=== PATIENT | female | born 1995 | race Caucasian/White ===

== ENCOUNTER → 2019-09-23 | Outpatient (CLI) | payer OTHER ==
--- NOTE | 2019-09-23 13:38 | REP ---
Digital diagnostic bilateral mammography with CAD, 3-D tomography. History: Tender lump and redness left breast. Treated for mastitis with antibiotics. Mild bilateral skin rash. Mastitis symptoms and the palpable lump have resolved according to patient as of the date of mammography. No comparison breast imaging. Findings: Routine views of the left breast are augmented by 3-D tomography. Magnified views of the right breast were obtained at my request because of routine views showing a possible asymmetric density. The magnified views of the right breast demonstrate that this area compresses away to normal breast stromal elements. No asymmetric density mass or architectural distortion is seen on either side mammographically. No microcalcification or worrisome skin change is appreciated. A true MLO view of the left breast is also obtained and shows no additional finding. Impression: BIRADS category 1 negative findings. Clinical followup is advised. This mammogram was interpreted with the aid of an FDA-approved computer-aided detection system. The patient states she had a clinical breast exam in August 2019. The patient letter being requested is m2. This patient's estimated Tyrer-Cuzick lifetime risk assessment for the breast cancer is 19.6 %. Patient's whose breast cancer lifetime risk assessment is greater than 20% merit enhanced screening with annual MRI scanning.
== END ==
LOC: M WHC 11:07
PROVIDERS: ATTEND Family Medicine
DX: N63.20 Unspecified lump in the left breast, unspecified quadrant (principal)
CPT/HCPCS: 77066; G0279

== ENCOUNTER 2019-10-15 11:38 | Emergency (ER) | payer OTHER ==
[~2019-10-15] VITALS: Ht 165.1 cm; Wt 79.5 kg
[2019-10-15] MEDS ORDERED: ADDE20CA3 PO (12:09)
[2019-10-15 12:53] LABS: BASO # 0.1 10^3/uL (0.0-0.2); BASO % 0.6 % (0.0-1.0); EOS # 0.3 10^3/uL (0.0-0.5); EOS % 3.5 % (0.0-3.0); HEMATOCRIT 44.7 % (36.0-47.0); LYMPH # 2.4 10^3/uL (1.5-5.0); MEAN CORPUSCULAR HEMOGLOBIN 31.8 pg (27.0-33.0); MEAN CORPUSCULAR HGB CONC 33.6 g/dl (32.0-36.5); MEAN CORPUSCULAR VOLUME 94.9 fl (80.0-96.0); MONO # 0.4 10^3/uL (0.0-0.8); MONO % 5.3 % (0.0-5.0); NEUTROPHILS # 4.6 10^3/uL (1.5-8.5); NEUTROPHILS % 59.5 % (36.0-66.0); PLATELET COUNT, AUTOMATED 302 10^3/uL (150-450); RED BLOOD COUNT 4.71 10^6/uL (4.00-5.40); WHITE BLOOD COUNT 7.8 10^3/uL (4.0-10.0)
[2019-10-15 13:30] LABS: ALBUMIN 3.7 GM/DL (3.2-5.2); ALT/SGPT 23 U/L (12-78); BILIRUBIN,DIRECT < 0.1 MG/DL (0.0-0.2); BILIRUBIN,TOTAL 0.3 MG/DL (0.2-1.0); BLOOD UREA NITROGEN 12 MG/DL (7-18); CALCIUM LEVEL 9.5 MG/DL (8.5-10.1); CARBON DIOXIDE LEVEL 28 MEQ/L (21-32); CHLORIDE LEVEL 106 MEQ/L (98-107); CK-MB VALUE MASS < 1.0 NG/ML (<3.6); CPK CREATINE PHOSPHOKINASE 43 U/L (26-192); GLOMERULAR FILTRATION RATE > 60.0 (>60); GLUCOSE, FASTING 86 MG/DL (70-100); MB/CK RELATIVE INDEX 2.33 (< OR =4); POTASSIUM SERUM 4.6 MEQ/L (3.5-5.1); SODIUM LEVEL 137 MEQ/L (136-145); THYROID STIMULATING HORMONE 0.583 uIU/ML (0.358-3.740); THYROXINE (T4) 10.5 UG/DL (4.5-12.0); TOTAL PROTEIN 7.3 GM/DL (6.4-8.2); TROPONIN I < 0.02 NG/ML (< 0.10)
--- NOTE | 2019-10-15 13:45 | REP ---
CHEST, SINGLE VIEW: There is no evidence of acute infiltrate. No pleural effusion is seen. The heart is normal in size. The mediastinal silhouette is unremarkable. The visualized osseous structures are intact. IMPRESSION: No acute pulmonary disease. Electronically Signed by Jaime Lyon MD 10/15/2019 02:09 P
[2019-10-15] MEDS ORDERED: CEPHALEXIN 500 MG CAP PO ONE (17:15)
[2019-10-15] MEDS ORDERED: HYDROXYCHLOROQUINE 200 MG TAB PO ONE (17:30)
[2019-10-15] MEDS ORDERED: KEFL500C17 PO (17:31)
[2019-10-15 17:46] VITALS: BP 110/84
--- NOTE | 2019-10-15 18:44 | ECGEPIP ---
[facility] - ED Test Date: 2019-10-15 Pat Name: AMANDA ALLEN Department: Room: - Gender: Female [id number] Operator: PMO : 1995 Requested By: RAMBO Lloyd Order Number: [id number] Reading MD: Meredith Gutierrez Measurements Intervals Massey Rate: 82 P: 67 IA: 159 QRS: 68 QRSD: 91 T: 49 QT: 355 QTc: 415 Interpretive Statements SINUS RHYTHM NO PRIOR Electronically Signed on 10-15-2019 18:44:20 EDT by Meredith Gutierrez
== END 2019-10-15 17:48 | disposition home or self-care (01) ==
LOC: M ED 11:38
DX: R04.2 Hemoptysis (principal); L73.9 Follicular disorder, unspecified; F90.9 Attention-deficit hyperactivity disorder, unspecified type; Z79.899 Other long term (current) drug therapy; F17.210 Nicotine dependence, cigarettes, uncomplicated

== ENCOUNTER 2019-12-14 01:59 | Emergency (ER) | payer OTHER ==
[~2019-12-14] VITALS: Ht 165.1 cm; Wt 80.1 kg
[2019-12-14 01:59] VITALS: BP 124/78
[~2019-12-14 01:59] MED LIST: ADDE20CA3 PO; KEFL500C17 PO
[2019-12-14] MEDS ORDERED: OPER4LIQ TOP (02:21)
[2019-12-14] MEDS ORDERED: MUCI30TA5 PO (02:21)
[2019-12-14] MEDS ORDERED: DOXY100T PO (02:21)
[2019-12-14] MEDS ORDERED: TRIA1OI TOP (02:21)
[2019-12-14] MEDS ORDERED: FLUTISP NARES (02:21)
[2019-12-14] MEDS ORDERED: ZOLP5TAB PO (02:21)
[2019-12-14] MEDS ORDERED: CLIN1GEL22 TOP (02:21)
== END 2019-12-14 03:38 | disposition home or self-care (01) ==
LOC: M ED 01:59
DX: L73.2 Hidradenitis suppurativa (principal); F17.200 Nicotine dependence, unspecified, uncomplicated; Z79.899 Other long term (current) drug therapy; Z79.2 Long term (current) use of antibiotics

== ENCOUNTER → 2020-02-28 | Emergency (ER) | payer OTHER ==
[~2020-02-28] MED LIST changes: +CLIN1GEL22 TOP; +DOXY100T PO; +FLUTISP NARES; +MUCI30TA5 PO; +OPER4LIQ TOP; +TRIA1OI TOP; +ZOLP5TAB PO
== END | disposition left against medical advice (07) ==
LOC: M ED 23:51
DX: Z53.29 Procedure and treatment not carried out because of patient's decision for other reasons (principal)

== ENCOUNTER → 2020-04-27 | Outpatient (CLI) | payer OTHER ==
--- NOTE | 2020-05-03 09:54 | REP ---
CHEST X-RAY: 2-VIEWS HISTORY: Acute bronchitis. COMPARISON: Chest x-ray 10/15/2019. FINDINGS: The lungs remain well-inflated and clear. The pleural angles are sharp. Cardiomediastinal silhouette and bony thorax are unremarkable. Pulmonary vasculature is not increased. IMPRESSION: Negative chest x-ray. MTDD
== END ==
LOC: M WUC 14:05
PROVIDERS: ATTEND Physician Assistant
DX: J20.9 Acute bronchitis, unspecified (principal)

== ENCOUNTER → 2020-05-25 | Outpatient (CLI) | payer OTHER ==
[~2020-05-25] MED LIST changes: +E-Z-GAS II EFFERVESCENT PACKET (SODIUM BICARB./CITRIC ACID/SIMETHICONE) As Ordered ONE; +E-Z-HD 98% w/w 340GM SUSP BTL As Ordered ONE; +E-Z-PAQUE 96% w/w SUSP 176GM BTL As Ordered ONE
--- NOTE | 2020-05-25 17:35 | REP ---
INDICATION: DYSPHAGIA. COMPARISON: None. TECHNIQUE: This procedure was performed under the direct supervision of Dr. Lyon. Images were reviewed with Dr. Lyon. A single view PA chest x-ray is submitted as a lucerne farmer film. The superior mediastinal structures are midline. The heart size is within normal limits. The lungs are clear. Liquid barium and gas producing granules were given in the erect position. The oral and pharyngeal stages of deglutition are unremarkable. Esophageal transport is prompt and efficient. The patient was unable to retain the barium and the examination was not able to be completed. Visualized portion of the esophagus is grossly normal. FINDINGS: The oral and pharyngeal stages of deglutition are unremarkable. Esophageal transport is prompt and efficient. The patient was unable to retain the barium and the examination was not able to be completed. Visualized portion of the esophagus is grossly normal. IMPRESSION: Incomplete exam as the patient was unable to retain the barium. The visualized portion of the esophagus is unremarkable. 0.2 minutes of fluoro time was utilized for this procedure. <Electronically signed by Ammon Herrera > 05/25/20 1632 <Electronically signed by Jaime Lyon > 05/25/20 [id number]
== END ==
LOC: M RAD 08:35
PROVIDERS: ATTEND Specialist
DX: R13.10 Dysphagia, unspecified (principal)

== ENCOUNTER 2020-08-06 03:16 | Emergency (ER) | payer OTHER ==
[~2020-08-06] VITALS: Ht 165.1 cm; Wt 86.6 kg
[~2020-08-06 03:16] MED LIST changes: -E-Z-GAS II EFFERVESCENT PACKET (SODIUM BICARB./CITRIC ACID/SIMETHICONE) As Ordered ONE; -E-Z-HD 98% w/w 340GM SUSP BTL As Ordered ONE; -E-Z-PAQUE 96% w/w SUSP 176GM BTL As Ordered ONE
[2020-08-06 03:17] VITALS: BP 132/71
== END 2020-08-06 07:11 | disposition left against medical advice (07) ==
LOC: M ED 03:16
DX: Z53.21 Procedure and treatment not carried out due to patient leaving prior to being seen by health care provider (principal)